=== PATIENT | male | born 1940 | race Caucasian/White ===

== ENCOUNTER 2017-09-01 07:09 | Day surgery (SDC) | payer MEDICARE ==
[~2017-09-01] VITALS: Ht 172.7 cm; Wt 83.9 kg
[~2017-09-01 07:09] MED LIST: BACTRIM DS1 TAB PO; CHOLESTEROL MED; SIMVASTATIN40 MG PO
[2017-09-01 09:03] VITALS: BP 147/88
== END 2017-09-01 10:25 | disposition home or self-care (01) ==
LOC: ENDO 07:09 → ORM 08:30 → ENDO 08:30
PROVIDERS: ATTEND Surgery
PROC: 0DJD8ZZ Inspection of Lower Intestinal Tract, Via Natural or Artificial Opening Endoscopic (ICD-10-PCS; principal; 2017-09-01)
DX: K64.8 Other hemorrhoids (principal)